=== PATIENT | male | born 1965 | race African-American/Black ===

== ENCOUNTER 2017-01-13 14:45 | Emergency (ER) | payer MEDICAID, OTHER ==
[2017-01-13 15:00] VITALS: BP 122/80
[2017-01-13] MEDS ORDERED: Ketorolac 60 MG/2 ML SDV IM ONE (15:12)
--- NOTE | 2017-01-13 23:47 | ER ---
Date of Service: 01/13/2017 SUBJECTIVE: Holden presents to the emergency room with complaints of a right great toe pain. The patient states that he has been experiencing this discomfort for several days to possibly a week. The patient has a long-standing history of problems with his right knee. He did have knee replacement last year and has had recurrent infections and dehiscence of the surgical incision. He states he is not experiencing any duskiness or calf pain. In reviewing his medical records, it looks as though he does have a history of gout in the past. He states that the discomfort is located only in his right great toe. PAST MEDICAL HISTORY: 1. Please see history of present illness. Again does have significant postsurgical complications to right knee replacement. 2. Hypertension. 3. Thrombocytopenia. MEDICATIONS: 1. Trazodone. 2. Oxycodone. ALLERGIES: NKDA. REVIEW OF SYSTEMS: General: Denies any fever or chills. Please see history of present illness. Denies any joint discomfort other than what was isolated to his right great toe. PHYSICAL EXAMINATION: General: This is a 51-year-old male patient is in no acute distress. Vital Signs: Blood pressure is 122/80, pulse rate is 92, temperature is 35.8, and O2 saturations 97%. Skin: Warm, pink, and dry. Musculoskeletal: The patient has significant discomfort in his right great toe with plantar flexion. No erythema or significant swelling noted to the joint. Neurovascular, circulation, sensation, motor function are all within normal limits in the distal portion of the extremity. RADIOGRAPHIC DATA: Right great toe series was obtained. No evidence of any acute fracture or dislocation noted. LABORATORY DATA: C-reactive protein and uric acid were obtained and were pending. The patient did not want to wait around to get the results of this. Subsequently, we will either call or write him with the results. ASSESSMENT: Right great toe pain likely secondary to gout. PLAN: The patient was started on prednisone 40 mg daily for 4 days. Also was started on a course of indomethacin 50 mg b.i.d. for discomfort. He can use oxycodone for severe pain. All questions were answered. MWK: 01/13/2017 16:09:32 MODL: 01/13/2017 23:37:37 /[id number]
--- NOTE | 2017-01-17 09:20 | LETTER ---
01/14/[address] [place] [address] [address] [place], [place] [address] RE: IDALMIS KRISTOFER CINTRON : 1965 Dear Angy Mahesh: We have received your laboratory values from your ER visit. Your uric acid measured 5.7, which is normal. Your C-reactive protein, which is a nonspecific test for inflammation is mildly elevated at 2.1. Giving a history of your multiple problems with your knee, it is not uncommon to have an elevated C- reactive protein. You do have a history of gout in the past according to your chart and I still believe that you are having a gout flare up, but your uric acid level is normal and will not require any treatment with Allopurinol. The medications that I prescribed you when you were in the emergency room are the only medications you need to take. Please contact the ER at [phone] or follow up in the clinic if you have any questions. Sincerely,
== END 2017-01-13 16:05 | disposition home or self-care (01) ==
LOC: VM.ED 14:45
DX: M79.674 Pain in right toe(s) (principal); I10 Essential (primary) hypertension
CPT/HCPCS: 36415; 73660; 84550; 86140; 96372; 99283; J1885

== ENCOUNTER 2017-03-27 10:52 | Emergency (ER) | payer MEDICAID, OTHER ==
--- NOTE | 2017-03-27 11:26 | EDM.PDOC ---
ED HPI GENERAL MEDICAL PROBLEM - General Chief Complaint: General Stated Complaint: bleeding at amp site Time Seen by Provider: 03/27/17 11:00 Source of Information: Reports: Patient, EMS Notes Reviewed, RN, RN Notes Reviewed History Limitations: Reports: No Limitations - History of Present Illness INITIAL COMMENTS - FREE TEXT/NARRATIVE: Patient is brought to the emergency room at [facility] via EMS. The patient is concerned about drainage from his recent amputation site. The patient underwent a AKA about 2 weeks ago, for an infection knee site. Patient underwent a TKA a little over a year ago. He had trouble ever since the TKA, in which he ended up having a AKA. Patient states there has been oozing from the incision site and is concerned. 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) Cardiovascular History: Reports: Hypertension Immunologic History: Reports: Other (See Below) - Infectious Disease History Infectious Disease History: Reports: Hepatitis C - Past Surgical History Musculoskeletal Surgical History: Reports: Knee Replacement Social & Family History - Family History Family Medical History: Noncontributory - Tobacco Use Smoking Status *Q: Never Smoker Years of Tobacco use: 40 Packs/Tins Daily: 0.2 Second Hand Smoke Exposure: No - Alcohol Use Days Per Week of Alcohol Use: 2 Number of Drinks Per Day: 6 Total Drinks Per Week: 12 - Recreational Drug Use Recreational Drug Use: No Drug Use in Last 12 Months: No Recreational Drug Type: Reports: Cocaine, Marijuana/Hashish ED ROS GENERAL - Review of Systems Review Of Systems: See Below Constitutional: Denies: Fever, Chills, Weakness Respiratory: Denies: Shortness of Breath, Cough Cardiovascular: Denies: Chest Pain, Palpitations Skin: Reports: Wound (draining from stump site) Neurological: Denies: Numbness, Paresthesia, Tingling ED EXAM, GENERAL - Physical Exam Exam: See Below Exam Limited By: No Limitations General Appearance: Alert Respiratory/Chest: No Respiratory Distress, Lungs Clear, Normal Breath Sounds Cardiovascular: Regular Rate, Rhythm Extremities: Other (Sutures are intact of the stump site, patient has a small grade serosanguineous ooze around the sutures, no evidence of infection, nontender) Neurological: Alert Skin Exam: Warm, Dry, Intact, Normal Color, No Rash Course - Vital Signs Last Recorded V/S: Last Vital Signs Temp 37.1 C 03/27/17 10:57 Pulse 103 H 03/27/17 10:57 Resp 20 03/27/17 10:57 BP 152/95 H 03/27/17 10:57 Pulse Ox 98 03/27/17 10:57 Departure - Departure Time of Disposition: 11:26 Disposition: Home, Self-Care 01 Condition: good Clinical Impression: Edema of amputation stump of right lower extremity, AKA stump complication - Discharge Information Instructions: Stump and Prosthesis Care, Sutured Wound Care Forms: ED Department Discharge Additional Instructions: 1. Stay well hydrated 2. Keep incision site clean and dry 3. You will need to change the bandages as needed for the drainage 4. See your Primary this week for a recheck - Problem List Review Problem List Initiated/Reviewed/Updated: Yes
[2017-03-27 12:52] VITALS: BP 149/84
== END 2017-03-27 12:44 | disposition home or self-care (01) ==
LOC: VM.ED 10:52
DX: T87.89 Other complications of amputation stump (principal); I10 Essential (primary) hypertension; Z79.899 Other long term (current) drug therapy; Z96.659 Presence of unspecified artificial knee joint
CPT/HCPCS: 99283

== ENCOUNTER 2017-05-03 09:58 | Emergency (ER) | payer MEDICAID ==
[2017-05-03 10:29] VITALS: BP 128/81
--- NOTE | 2017-05-03 10:32 | EDM.PDOC ---
ED HPI GENERAL MEDICAL PROBLEM - General Chief Complaint: Lower Extremity Injury/Pain Stated Complaint: FELL Time Seen by Provider: 05/03/17 10:15 Source of Information: Reports: Patient History Limitations: Reports: No Limitations - History of Present Illness INITIAL COMMENTS - FREE TEXT/NARRATIVE: Patient reports being outside the [employer] yesterday when he fell over some missing cement. 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 He states he has left hip pain. No LOC, did not hit his head. No other complaints today. He does have pain medications prescribed that he can take. He did not injure his amputation site. He did ambulate into the clinic with crutches and does have a prosthetic leg. Onset Date: 05/03/17 Location: Reports: Lower Extremity, Left Quality: Reports: Sharp Severity: Moderate Improves with: Reports: Cold Therapy, Rest Worsens with: Reports: Movement Associated Symptoms: Reports: No Other Symptoms Left Hip Pain Score (Numeric/FACES): 8 - Related Data Allergies Allergy/AdvReac Type Severity Reaction Status Date / Time No Known Drug Allergies Allergy Other Verified 05/03/17 10:20 Home Meds: Home Meds amLODIPine [Norvasc] 10 mg PO BEDTIME #14 tab 10/02/14 [Rx] traZODone 50 mg PO BEDTIME PRN 07/25/15 [History] Amoxicillin/Clavulanate K [Augmentin 875 MG/125 MG] 1 tab PO BID 05/08/16 [ History] oxyCODONE HCl/Acetaminophen [oxyCODONE-Acetaminophen 5-325] 10 mg Q6H 05/20/16 [ History] Ferrous Sulfate [Iron] 325 mg PO DAILY 07/17/16 [History] Past Medical History Other HEENT History: 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) Cardiovascular History: Reports: Hypertension Immunologic History: Reports: Other (See Below) - Infectious Disease History Infectious Disease History: Reports: Hepatitis C - Past Surgical History Musculoskeletal Surgical History: Reports: Knee Replacement Social & Family History - Family History Family Medical History: Noncontributory - Tobacco Use Smoking Status *Q: Never Smoker Years of Tobacco use: 40 Packs/Tins Daily: 0.2 Second Hand Smoke Exposure: No - Alcohol Use Days Per Week of Alcohol Use: 2 Number of Drinks Per Day: 6 Total Drinks Per Week: 12 - Recreational Drug Use Recreational Drug Use: No Drug Use in Last 12 Months: No Recreational Drug Type: Reports: Cocaine, Marijuana/Hashish Review of Systems - Review of Systems Review Of Systems: See Below Constitutional: Reports: No Symptoms Eyes: Reports: No Symptoms Ears: Reports: No Symptoms Nose: Reports: No Symptoms Mouth/Throat: Reports: No Symptoms Respiratory: Reports: No Symptoms Cardiovascular: Reports: No Symptoms GI/Abdominal: Reports: No Symptoms Genitourinary: Reports: No Symptoms Musculoskeletal: Reports: Leg Pain Skin: Reports: No Symptoms Neurological: Reports: No Symptoms Psychiatric: Reports: No Symptoms ED EXAM, GENERAL - Physical Exam Exam: See Below Exam Limited By: No Limitations General Appearance: Alert, WD/WN, Mild Distress Eye Exam: Bilateral Eye: EOMI, PERRL Respiratory/Chest: No Respiratory Distress, Lungs Clear, Normal Breath Sounds Cardiovascular: Normal Peripheral Pulses, Regular Rate, Rhythm, No Edema GI/Abdominal: Normal Bowel Sounds, Soft, Non-Tender Extremities: Normal Inspection, Leg Pain, Limited Range of Motion (left hip internal rotation exhibits increased pain. no leg shortening noted on exam) Neurological: Alert, Oriented, CN II-XII Intact, Normal Cognition Psychiatric: Normal Affect, Normal Mood Skin Exam: Warm Course - Vital Signs Last Recorded V/S: Last Vital Signs Temp 37.1 C 05/03/17 10:00 Pulse 81 05/03/17 10:00 Resp 16 05/03/17 10:00 BP 128/81 05/03/17 10:00 Pulse Ox - Orders/Labs/Meds Orders: Active Orders 24 hr Category Date Time Status Hip Min 2V or 3V w Pelvis Lt [CR] Stat Exams 05/03/17 10:30 Taken Meds: Medications Discontinued Medications Generic Name Dose Route Start Last Admin Trade Name Freq PRN Reason Stop Dose Admin Ketorolac Tromethamine 30 mg 05/03/17 10:48 05/03/17 10:58 Toradol IM 05/03/17 10:49 30 mg ONETIME ONE Administration - Radiology Interpretation Free Text/Narrative:: hip pelvis x-ray negative for acute fracture Departure - Departure Time of Disposition: 11:58 Disposition: Home, Self-Care 01 Condition: Good Clinical Impression: Contusion of hip, Contusion of thigh - Discharge Information Instructions: Quadriceps Contusion, [id number], Hip Pointer, [id number] Forms: ED Department Discharge Additional Instructions: Elevate your leg, use ice and you can alternate heat as well. Ice should be applied for 20-30 minutes at a time and used every 2-3 hours for swelling. Take ibuprofen and tylenol as needed for pain. Your x-ray did not show any acute fracture. You can call us with any questions or concerns. - Problem List & Annotations (1) Contusion of hip SNOMED Code(s): 07624590 Code(s): S70.00XA - CONTUSION OF UNSPECIFIED HIP, INITIAL ENCOUNTER Status : Acute Priority: Low Current Visit: Yes (2) Contusion of thigh SNOMED Code(s): 48372907 Code(s): S70.10XA - CONTUSION OF UNSPECIFIED THIGH, INITIAL ENCOUNTER Status: Acute Priority: Low Current Visit: Yes - My Orders Last 24 Hours: My Active Orders 05/03/17 10:30 Hip Min 2V or 3V w Pelvis Lt [CR] Stat - Assessment/Plan Last 24 Hours: My Active Orders 05/03/17 10:30 Hip Min 2V or 3V w Pelvis Lt [CR] Stat Assessment:: hip and thigh contusion Plan: Elevate your leg, use ice and you can alternate heat as well. Ice should be applied for 20-30 minutes at a time and used every 2-3 hours for swelling. Take ibuprofen and tylenol as needed for pain. Your x-ray did not show any acute fracture. You can call us with any questions or concerns.
[2017-05-03] MEDS ORDERED: Ketorolac 30 MG/ML SDV IM ONE (10:48)
== END 2017-05-03 12:00 | disposition home or self-care (01) ==
LOC: VM.ED 09:58
DX: S70.02XA Contusion of left hip, initial encounter (principal); S70.12XA Contusion of left thigh, initial encounter; I10 Essential (primary) hypertension; Z79.899 Other long term (current) drug therapy; Z96.651 Presence of right artificial knee joint; W19.XXXA Unspecified fall, initial encounter
CPT/HCPCS: 73502; 96372; 99283; J1885

== ENCOUNTER 2017-07-10 14:14 | Emergency (ER) | payer MEDICAID ==
[2017-07-10 14:34] VITALS: BP 151/76
[2017-07-10 16:01] LABS: CHLORIDE,CL 105 mmol/L (98-107); SODIUM,NA 140 mmol/L (136-145)
[2017-07-10] MEDS ORDERED: Ketorolac 60 MG/2 ML SDV IM ONE (16:16)
--- NOTE | 2017-07-11 08:47 | ER ---
Date of Service: 07/10/2017 SUBJECTIVE: Holden presents to the emergency room with complains of pain to his [id number] amputation stump. The patient states that he underwent amputation of his right leg above the knee in January secondary to peripheral vascular disease. He states that he has been experiencing pain in his stump for some time. He is scheduled for an ultrasound next week and apparently he has been referred to the [facility] for issues with pain in the stump as well. The patient states that he is not experiencing any fever or chills. He has not noticed any discoloration to the skin of the stump. He states that the discomfort is chronic but worse today. PAST MEDICAL HISTORY: 1. Right hzugn-env-egih amputation. 2. Hypertension. 3. Thrombocytopenia. 4. GERD. 5. Anemia. 6. Gout. MEDICATIONS: 1. Trazodone and oxycodone. 2. Multivitamin. 3. Neurontin. 4. Wellbutrin. ALLERGIES: NKDA. REVIEW OF SYSTEMS: General: No fever or chills. HEENT: No sore throat, rhinorrhea, or congestion. Cardiac: No chest pain. Respiratory: He had no shortness of breath. GI: No nausea, vomiting, or diarrhea. Musculoskeletal: Please see history of present illness. PHYSICAL EXAMINATION: General: This is a 52-year-old male patient in no acute distress. Vital Signs: Blood pressure is 151/76, heart rate is 105, temperature is 36, respiratory rate is 18, O2 saturation is 96%. Skin: Warm, pink, and dry. HEENT. Head is normocephalic, atraumatic. Mouth, oral mucosa is moist. Lungs: Clear to auscultation. Heart: Regular rate and rhythm. Abdomen: Soft, nontender. There is no hepatosplenomegaly or masses noted. Extremities: The stump is well healed. No evidence of any skin breakdown. No evidence of cellulitis or other pathology. LABORATORY DATA: WBC is 5.7, hemoglobin is 13.9, platelets are 175. Coags: PT is 11.6, INR is 1.1. D-dimer is 0.54. Chemistry: Sodium is 140, potassium is 4.4, chloride is 105, bicarb is 30, BUN is 10, creatinine is 1.1. Creatinine clearance is 86.75. GFR is greater than 60. Glucose is 111. Calcium is 9.2, corrected calcium is 9.52. Total bilirubin is 0.7, AST is 19, ALT is 24, alkaline phosphatase is 121. Total protein is 7.9, albumin is 3.6. EMERGENCY ROOM COURSE: The patient was given an injection of Toradol 60 mg IM. He remained stable in my care in the emergency room. ASSESSMENT: Acute on chronic amputation stump pain. PLAN: The patient will be discharged. He can start on naproxen 500 mg twice daily in addition to his gabapentin and oxycodone. I would like him to follow up in the clinic in the next several days to discuss possibly changing from gabapentin to Lyrica to see if this helps with his discomfort. He is to return to the emergency room if he develops any erythema or swelling or discharge from the operative site. All questions were answered. MWK: 07/10/2017 21:04:45 MODL: 07/11/2017 02:20:53 /[id number]
== END 2017-07-10 16:36 | disposition home or self-care (01) ==
LOC: VM.ED 14:14
DX: T87.89 Other complications of amputation stump (principal); D69.6 Thrombocytopenia, unspecified; I10 Essential (primary) hypertension; K21.9 Gastro-esophageal reflux disease without esophagitis; Z86.79 Personal history of other diseases of the circulatory system
CPT/HCPCS: 36415; 80053; 85025; 85379; 85610; 96372; 99283; J1885

== ENCOUNTER 2018-01-21 18:29 | Emergency (ER) | payer MEDICAID ==
[2018-01-21 18:33] VITALS: BP 151/89
[2018-01-21] MEDS ORDERED: Sodium Chloride 0.9% 1,000 ML IV ONE (18:42)
[2018-01-21] MEDS ORDERED: Sodium Chloride 0.9% 10 ML Syringe FLUSH PRN (18:42)
--- NOTE | 2018-01-21 19:03 | EDM.PDOC ---
ED HPI GENERAL MEDICAL PROBLEM - General Chief Complaint: Neurological Problem Stated Complaint: lightheadedness Time Seen by Provider: 01/21/18 18:35 Source of Information: Reports: Patient History Limitations: Reports: No Limitations - History of Present Illness INITIAL COMMENTS - FREE TEXT/NARRATIVE: Patient arrives this evening with complaints of dizziness over the last 4 days. It is made worse with position changes and moving. 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 He also had hepatitis C and did complete the treatment for that. He denies diabetes, cancer, denies high cholesterol. Mother of cancer. Father is unknown. 1 sister of stroke and he has 3 living sisters. He denies chest pain, nausea, vomiting, headache, blood in urine or stool, recent illness. He does endorse shortness of breath. He is a 1/2-3/4 PPD smoker, drinks alcohol 1-2 times weekly; reported to be 3-4 beers, denies illegal drug use. Onset Date: 01/18/18 Duration: Intermittent Worsens with: Reports: Movement Associated Symptoms: Reports: Shortness of Breath - Related Data Allergies Allergy/AdvReac Type Severity Reaction Status Date / Time No Known Drug Allergies Allergy Other Verified 01/21/18 18:33 Home Meds: Home Meds traZODone 50 mg PO BEDTIME PRN 07/25/15 [History] oxyCODONE HCl/Acetaminophen [oxyCODONE-Acetaminophen 5-325] 10 mg PO Q6H [History] Gabapentin [Neurontin] 300 mg PO TID 07/10/17 [History] Multivitamin [Multivitamins] 1 each PO DAILY 07/10/17 [History] buPROPion [Wellbutrin] 75 mg PO BID 07/10/17 [History] amLODIPine [Norvasc] 10 mg PO DAILY 01/21/18 [History] Past Medical History Other HEENT History: 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) Cardiovascular History: Reports: Hypertension Gastrointestinal History: Reports: GERD Musculoskeletal History: Reports: Gout Neurological History: Reports: Other (See Below) Other Neuro History: vasovagal syncopy Psychiatric History: Reports: Depression Hematologic History: Reports: Anemia, Idiopathic Thrombocytopenia Immunologic History: Reports: Other (See Below) - Infectious Disease History Infectious Disease History: Reports: Hepatitis C - Past Surgical History Musculoskeletal Surgical History: Reports: Amputation, Knee Replacement Social & Family History - Family History Family Medical History: Noncontributory - Tobacco Use Smoking Status *Q: Current Every Day Smoker Years of Tobacco use: 40 Packs/Tins Daily: 0.7 Second Hand Smoke Exposure: No - Alcohol Use Days Per Week of Alcohol Use: 2 Number of Drinks Per Day: 4 Total Drinks Per Week: 8 - Recreational Drug Use Recreational Drug Use: No Drug Use in Last 12 Months: No Recreational Drug Type: Reports: Cocaine, Marijuana/Hashish ED ROS GENERAL - Review of Systems Review Of Systems: See Below Constitutional: Reports: No Symptoms HEENT: Reports: No Symptoms Respiratory: Reports: Shortness of Breath Cardiovascular: Reports: No Symptoms Endocrine: Reports: No Symptoms GI/Abdominal: Reports: No Symptoms : Reports: No Symptoms Musculoskeletal: Reports: No Symptoms Skin: Reports: No Symptoms Neurological: Reports: Dizziness Psychiatric: Reports: No Symptoms Hematologic/Lymphatic: Reports: No Symptoms Immunologic: Reports: No Symptoms ED EXAM, NEURO - Physical Exam Exam: See Below Exam Limited By: No Limitations General Appearance: Alert, WD/WN, No Apparent Distress Eye Exam: Bilateral Eye: EOMI, Normal Inspection, PERRL Ears: Normal External Exam, Normal Canal, Hearing Grossly Normal, Normal TMs Nose: Normal Inspection, Normal Mucosa, No Blood Throat/Mouth: Normal Inspection, Normal Lips, Normal Teeth, Normal Gums, Normal Oropharynx, Normal Voice, No Airway Compromise Head Exam: Atraumatic, Normocephalic Neck: Normal Inspection, Supple, Non-Tender, Full Range of Motion Respiratory/Chest: No Respiratory Distress, Lungs Clear, Normal Breath Sounds, No Accessory Muscle Use, Chest Non-Tender Cardiovascular: Normal Peripheral Pulses, Regular Rate, Rhythm, No Edema, No Gallop, No JVD, No Murmur, No Rub GI/Abdominal: Normal Bowel Sounds, Soft, Non-Tender, No Organomegaly, No Distention, No Abnormal Bruit, No Mass Neurological: Alert, Normal Mood/Affect, Normal Dorsiflexion, CN II-XII Intact, Normal Plantar Flexion, Normal Gait, Normal Reflexes, No Motor/Sensory Deficits , Oriented x 3 Back Exam: Normal Inspection, Full Range of Motion, NT Extremities: Normal Inspection, Normal Range of Motion, Non-Tender, No Pedal Edema, Normal Capillary Refill, Other (right knee above the knee amputation) Psychiatric: Normal Affect, Normal Mood Skin Exam: Warm, Dry, Intact, Normal Color, No Rash EKG INTERPRETATION EKG Date: 01/21/18 Time: 18:47 Rhythm: NSR Rate (Beats/Min): 87 [place]: Normal P-Wave: Present QRS: Normal ST-T: Normal QT: Normal EKG Interpretation Comments: sinus rhythm normal ECG Course - Vital Signs Last Recorded V/S: Last Vital Signs Temp 35.9 C 01/21/18 18:30 Pulse 91 01/21/18 18:30 Resp 16 01/21/18 18:30 BP 151/89 H 01/21/18 18:30 Pulse Ox 98 01/21/18 18:30 - Orders/Labs/Meds Orders: Active Orders 24 hr Category Date Time Status EKG Documentation Completion [RC] STAT Care 01/21/18 18:42 Ordered Chest 2V [CR] Stat Exams 01/21/18 18:42 Ordered CBC WITH AUTO DIFF [HEME] Stat Lab 01/21/18 18:42 Ordered COMPREHENSIVE METABOLIC PN,CMP [CHEM] Stat Lab 01/21/18 18:42 Ordered INR,PT,PROTHROMBIN TIME [COAG] Stat Lab 01/21/18 18:42 Ordered PRO B-TYPE NATRIUR PEPT,BNPPRO [CHEM] Stat Lab 01/21/18 18:42 Ordered TROPONIN I [CHEM] Stat Lab 01/21/18 18:42 Ordered Sodium Chloride 0.9% [Normal Saline] 1,000 ml Med 01/21/18 18:42 Ordered IV ONETIME Sodium Chloride 0.9% [Saline Flush] Med 01/21/18 18:42 Ordered 10 ml FLUSH ASDIRECTED PRN Saline Lock Insert [OM.PC] Routine Oth 01/21/18 18:42 Ordered Medication Orders Sodium Chloride (Normal Saline) 1,000 mls @ 999 mls/hr IV ONETIME ONE Stop: 01/21/18 19:42 Last Admin: 01/21/18 18:52 Dose: 999 mls/hr Sodium Chloride (Saline Flush) 10 ml FLUSH ASDIRECTED PRN PRN Reason: Keep Vein Open Meds: Medications Generic Name Dose Route Start Last Admin Trade Name Freq PRN Reason Stop Dose Admin Sodium Chloride 1,000 mls @ 999 mls/hr 01/21/18 18:42 01/21/18 18:52 Normal Saline IV 01/21/18 19:42 999 mls/hr ONETIME ONE Administration Sodium Chloride 10 ml 01/21/18 18:42 Saline Flush FLUSH ASDIRECTED PRN Keep Vein Open - Re-Assessments/Exams Free Text/Narrative Re-Assessment/Exam: 01/21/18 19:41 Review of labs indicate no acute cause for his dizziness. Electrolytes within normal limits, negative troponin level, chest x-ray negative. He does not show signs of dehydration either. Recommend follow up with primary with possible MRI of brain if symptoms persist. Departure - Departure Time of Disposition: 19:59 Disposition: Home, Self-Care 01 Condition: Good Clinical Impression: Dizziness - Discharge Information Instructions: Dizziness, [id number] Forms: ED Department Discharge Additional Instructions: All of your tests this evening were negative for acute causes for your dizziness. Please make an appointment with your primary doctor to determine whether a neurology consultation would be warranted. Stay hydrated. We did give you a dose of meclizine/antivert for your dizziness to see if this helped you. I would not advise taking this on a regular basis due to your long standing hypertension. Please call with any questions or concerns in the meantime. - Problem List & Annotations (1) Dizziness SNOMED Code(s): 865627404 Code(s): R42 - DIZZINESS AND GIDDINESS Status: Acute Priority: Low Current Visit: Yes - Problem List Review Problem List Initiated/Reviewed/Updated: Yes - My Orders Last 24 Hours: My Active Orders 01/21/18 18:42 EKG Documentation Completion [RC] STAT Chest 2V [CR] Stat CBC WITH AUTO DIFF [HEME] Stat COMPREHENSIVE METABOLIC PN,CMP [CHEM] Stat INR,PT,PROTHROMBIN TIME [COAG] Stat PRO B-TYPE NATRIUR PEPT,BNPPRO [CHEM] Stat TROPONIN I [CHEM] Stat Sodium Chloride 0.9% [Normal Saline] 1,000 ml IV ONETIME Sodium Chloride 0.9% [Saline Flush] 10 ml FLUSH ASDIRECTED PRN Saline Lock Insert [OM.PC] Routine - Assessment/Plan Last 24 Hours: My Active Orders 01/21/18 18:42 EKG Documentation Completion [RC] STAT Chest 2V [CR] Stat CBC WITH AUTO DIFF [HEME] Stat COMPREHENSIVE METABOLIC PN,CMP [CHEM] Stat INR,PT,PROTHROMBIN TIME [COAG] Stat PRO B-TYPE NATRIUR PEPT,BNPPRO [CHEM] Stat TROPONIN I [CHEM] Stat Sodium Chloride 0.9% [Normal Saline] 1,000 ml IV ONETIME Sodium Chloride 0.9% [Saline Flush] 10 ml FLUSH ASDIRECTED PRN Saline Lock Insert [OM.PC] Routine Assessment:: Dizziness Plan: All of your tests this evening were negative for acute causes for your dizziness. Please make an appointment with your primary doctor to determine whether a neurology consultation would be warranted. Stay hydrated. We did give you a dose of meclizine/antivert for your dizziness to see if this helped you. I would not advise taking this on a regular basis due to your long standing hypertension. Please call with any questions or concerns in the meantime.
[2018-01-21 19:26] LABS: CHLORIDE,CL 101 mmol/L (98-107); SODIUM,NA 138 mmol/L (136-145)
[2018-01-21] MEDS ORDERED: Meclizine 25 MG Tab PO ONE (19:37)
== END 2018-01-21 19:55 | disposition home or self-care (01) ==
LOC: VM.ED 18:29
DX: R42 Dizziness and giddiness (principal); F17.210 Nicotine dependence, cigarettes, uncomplicated; I10 Essential (primary) hypertension; K21.9 Gastro-esophageal reflux disease without esophagitis; F32.9 Major depressive disorder, single episode, unspecified; Z86.19 Personal history of other infectious and parasitic diseases
CPT/HCPCS: 71046; 80053; 83880; 84484; 85025; 85610; 93005; 96360; 99284; A9270; J7030; 36415

== ENCOUNTER 2019-07-10 19:41 | Emergency (ER) | payer MEDICAID, OTHER ==
[2019-07-10] MEDS ORDERED: Lidocaine 1% 30 ML SDV INJECT ONE (19:54)
--- NOTE | 2019-07-10 20:53 | CT ---
[id number] CT/CT Head WO IV EXAM: CT Head WO IV CLINICAL DATA: FALL, STRUCK HEAD, ?LOC COMPARISON STUDY: None FINDINGS: Small scalp contusion over the high parietal region. No underlying calvarial fracture. No acute intracranial hemorrhage. No extra-axial fluid collection or hydrocephalus. IMPRESSION: No acute intracranial findings. Jovi Morillo MD 07/10/19 [id number] Thank you for allowing us to participate in the care of your patient.
[2019-07-10 21:47] VITALS: BP 148/93
--- NOTE | 2019-07-17 06:55 | EDM.PDOC ---
ED HPI GENERAL MEDICAL PROBLEM - General Chief Complaint: Head Injury Stated Complaint: Head injury, lacerations to right arm Time Seen by Provider: 07/10/19 19:50 Source of Information: Reports: Patient, RN Notes Reviewed History Limitations: Reports: No Limitations - History of Present Illness INITIAL COMMENTS - FREE TEXT/NARRATIVE: Pt. states that he fell down stairs, striking head and injuring R upper extremity. Denies any LOC. He states that he has a headache. No numbness or tingling in extremities. He has 2 lacerations to his R arm. Denies any blurred vision. No chest pain or shortness of breath. States that he did not have any lightheadedness or weakness prior to the fall. Denies any cervical spine pain. No numbness or tingling in extremities. Onset Date: 07/10/19 Location: Reports: Head, Upper Extremity, Right Back of head Pain Score (Numeric/FACES): 5 - Related Data Allergies Allergy/AdvReac Type Severity Reaction Status Date / Time No Known Drug Allergies Allergy Other Verified 07/10/19 20:10 Home Meds: Home Meds traZODone 50 mg PO BEDTIME PRN 07/25/15 [History] oxyCODONE HCl/Acetaminophen [oxyCODONE-Acetaminophen 5-325] 10 mg PO Q6H [History] Gabapentin [Neurontin] 300 mg PO TID 07/10/17 [History] Multivitamin [Multivitamins] 1 each PO DAILY 07/10/17 [History] buPROPion [Wellbutrin] 75 mg PO BID 07/10/17 [History] amLODIPine [Norvasc] 10 mg PO DAILY 01/21/18 [History] Past Medical History Other HEENT History: 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) Cardiovascular History: Reports: Hypertension Gastrointestinal History: Reports: GERD Musculoskeletal History: Reports: Gout Neurological History: Reports: Other (See Below) Other Neuro History: vasovagal syncopy Psychiatric History: Reports: Depression Hematologic History: Reports: Anemia, Idiopathic Thrombocytopenia Immunologic History: Reports: Other (See Below) - Infectious Disease History Infectious Disease History: Reports: Hepatitis C - Past Surgical History Musculoskeletal Surgical History: Reports: Amputation, Knee Replacement Social & Family History - Family History Family Medical History: Noncontributory ED ROS GENERAL - Review of Systems Review Of Systems: See Below Constitutional: Reports: No Symptoms HEENT: Reports: No Symptoms Respiratory: Reports: No Symptoms Cardiovascular: Reports: No Symptoms Endocrine: Reports: No Symptoms GI/Abdominal: Reports: No Symptoms : Reports: No Symptoms Musculoskeletal: Reports: Other (See HPI) Skin: Reports: No Symptoms Neurological: Reports: Headache Psychiatric: Reports: No Symptoms Hematologic/Lymphatic: Reports: No Symptoms Immunologic: Reports: No Symptoms ED EXAM, GENERAL - Physical Exam Exam: See Below Exam Limited By: No Limitations General Appearance: Alert, WD/WN, No Apparent Distress Eye Exam: Bilateral Eye: EOMI, Normal Fundi, Normal Inspection, PERRL Ears: Normal External Exam, Normal Canal, Hearing Grossly Normal, Normal TMs Ear Exam: Bilateral Ear: Auricle Normal, Canal Normal, TM normal Nose: Normal Inspection, Normal Mucosa, No Blood Throat/Mouth: Normal Inspection, Normal Lips, Normal Teeth, Normal Gums, Normal Oropharynx, Normal Voice, No Airway Compromise Head: Other (scalp hematoma) Neck: Normal Inspection, Supple, Non-Tender, Full Range of Motion Respiratory/Chest: No Respiratory Distress, Lungs Clear, Normal Breath Sounds, No Accessory Muscle Use, Chest Non-Tender Cardiovascular: Normal Peripheral Pulses, Regular Rate, Rhythm, No Edema, No Gallop, No JVD, No Murmur, No Rub GI/Abdominal: Normal Bowel Sounds, Soft, Non-Tender, No Organomegaly, No Distention, No Abnormal Bruit, No Mass Back Exam: Normal Inspection, Full Range of Motion Extremities: Normal Range of Motion, Non-Tender, No Pedal Edema, Normal Capillary Refill, Other (3 cm lac to R upper arm, 1 cm lac to forearm) Neurological: Alert, Oriented, CN II-XII Intact, Normal Cognition, Normal Gait Psychiatric: Normal Affect, Normal Mood Skin Exam: Warm, Dry, Intact, Normal Color, No Rash ED GENERAL MEDICAL PROCEDURES - Laceration/Wound Repair Right Arm Lac/wound length in cm: 4 Appearance: Subcutaneous Distal NVT: Neuro & Vascular Intact, No Tendon Injury Anesthetic Type: Local Local Anesthesia - Lidocaine (Xylocaine): 1% Plain Local Anesthetic Volume: 4cc Skin Prep: Chlorhexidine (Hibiciens), Saline Exploration/Debridement/Repair: Wound Explored Closed with: Sutures Suture Size: 4-0 # of Sutures: 4 (3 sutures in the upper arm, 1 suture in the lower laceration) Suture Type: Nylon Course - Vital Signs Last Recorded V/S: Last Vital Signs Temp 36.4 C 07/10/19 19:41 Pulse 68 07/10/19 20:52 Resp 16 07/10/19 20:52 BP 148/93 H 07/10/19 20:52 Pulse Ox 98 07/10/19 19:41 - Orders/Labs/Meds Meds: Medications Discontinued Medications Generic Name Dose Route Start Last Admin Trade Name Lloyd PRN Reason Stop Dose Admin Lidocaine HCl 30 ml 07/10/19 19:54 07/10/19 20:35 Xylocaine-Mpf 1% INJECT 07/10/19 19:55 4 ml ONETIME ONE Administration - Radiology Interpretation Free Text/Narrative:: CT brain negative for acute pathology Departure - Departure Time of Disposition: 21:00 Disposition: Home, Self-Care 01 Clinical Impression: Concussion injury of brain - Discharge Information Instructions: Head Injury, Adult, Laceration Care, Adult Referrals: Echo Carias MD [Primary Care Provider] - Forms: ED Department Discharge Additional Instructions: Keep dry for 24 hours. Keep area open to air as much as possible. Cover if you anticipate the area getting dirty. Return to ER if you have any redness, swelling, or discharge from the laceration areas. Also return if you have any worsening headache, confusion, difficulty speaking, or vomiting. Sutures out on or about Jul. 9 (12-14 days) - Assessment/Plan Plan: Keep dry for 24 hours. Keep area open to air as much as possible. Cover if you anticipate the area getting dirty. Return to ER if you have any redness, swelling, or discharge from the laceration areas. Also return if you have any worsening headache, confusion, difficulty speaking, or vomiting. Sutures out on or about Jul. 9 (12-14 days)
== END 2019-07-10 21:03 | disposition home or self-care (01) ==
LOC: VM.ED 19:41
DX: S06.0X0A Concussion without loss of consciousness, initial encounter (principal); S51.811A Laceration without foreign body of right forearm, initial encounter; S41.111A Laceration without foreign body of right upper arm, initial encounter; I10 Essential (primary) hypertension; F32.9 Major depressive disorder, single episode, unspecified; Z79.899 Other long term (current) drug therapy; W10.9XXA Fall (on) (from) unspecified stairs and steps, initial encounter
CPT/HCPCS: 12002; 70450; 99284-25; 99284-GF; J2001

== ENCOUNTER 2020-10-18 13:28 | Emergency (ER) | payer BC ==
--- NOTE | 2020-10-18 13:56 | EDM.PDOC ---
ED HPI GENERAL MEDICAL PROBLEM - General Stated Complaint: right stump pain Time Seen by Provider: 10/18/20 13:50 Source of Information: Reports: Patient History Limitations: Reports: No Limitations - History of Present Illness INITIAL COMMENTS - FREE TEXT/NARRATIVE: This patient comes emergency department today with complaints of cramping sensation to his right thigh where he has a right AKA. This patient a couple of days ago was walking with his right lower extremity prosthetic when he stepped into a hole and really jammed his leg down into the hole. He had quite a bit of pain in his right femur region. He had x-rays completed in the clinic that were reported as negative. He was given a dose of Toradol IM and told if his pain was not better in 6 hours to go to the emergency department. The patient has been taking his oxycodone that he takes chronically but it is not doing much for his pain. He really cannot sleep. He has this constant squeezing pressure tightness to his right thigh in the area of his AKA. No recent falls or trauma. He has been putting ice on it at home but it is not improving. No Covid exposure. No Covid symptoms. He has not been using his lower extremity prosthetic. Right Hip Pain Score (Numeric/FACES): 10 - Related Data Allergies Allergy/AdvReac Type Severity Reaction Status Date / Time No Known Drug Allergies Allergy Other Verified 10/18/20 19:47 Home Meds: Home Meds traZODone 50 mg PO BEDTIME PRN 07/25/15 [History] oxyCODONE HCl/Acetaminophen [oxyCODONE-Acetaminophen 5-325] 10 mg PO Q6H 05/20/16 [History] Gabapentin [Neurontin] 300 mg PO TID 07/10/17 [History] Multivitamin [Multivitamins] 1 each PO DAILY 07/10/17 [History] buPROPion [Wellbutrin] 75 mg PO BID 07/10/17 [History] amLODIPine [Norvasc] 10 mg PO DAILY 01/21/18 [History] Past Medical History Other HEENT History: 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) Cardiovascular History: Reports: Hypertension Gastrointestinal History: Reports: GERD Musculoskeletal History: Reports: Gout Neurological History: Reports: Other (See Below) Other Neuro History: vasovagal syncopy Psychiatric History: Reports: Depression Hematologic History: Reports: Anemia, Idiopathic Thrombocytopenia Immunologic History: Reports: Other (See Below) - Infectious Disease History Infectious Disease History: Reports: Hepatitis C - Past Surgical History Musculoskeletal Surgical History: Reports: Amputation, Knee Replacement Social & Family History - Family History Family Medical History: No Pertinent Family History Review of Systems - Review of Systems Review Of Systems: Comprehensive ROS is negative, except as noted in HPI. ED EXAM, GENERAL - Physical Exam Exam: See Below Free Text/Narrative:: This is a very pleasant happy interactive patient. Who is ambulatory on his crutches. Exam Limited By: No Limitations General Appearance: Alert, WD/WN Respiratory/Chest: No Respiratory Distress Cardiovascular: Normal Peripheral Pulses Extremities: No: Normal Inspection (Examination of the right lower extremity. The patient has a well-healed unremarkable right AKA. He clearly has some muscle spasms on the very anterior distal aspect of the stump as well as on the lateral aspect over the area of the greater trochanter. He is tender in both of these area. There is no crepitus bruising swelling or ecchymosis. He has normal range of motion at the hip.) Neurological: Alert, Oriented, No Motor/Sensory Deficits Course - Vital Signs Last Recorded V/S: Last Vital Signs Temp 98.6 F 10/18/20 13:30 Pulse 100 10/18/20 13:30 Resp 16 10/18/20 13:30 BP 132/68 10/18/20 13:30 Pulse Ox 99 10/18/20 13:30 - Orders/Labs/Meds Meds: Medications Discontinued Medications Generic Name Dose Route Start Last Admin Trade Name Lloyd PRN Reason Stop Dose Admin Diazepam 45 mg 10/18/20 14:29 10/18/20 19:56 Valium. PO 10/18/20 14:30 Not Given ONETIME ONE Diazepam Confirm 10/18/20 14:52 10/18/20 19:57 Valium. Administered 10/18/20 14:53 Not Given Dose 25 mg .ROUTE .STK-MED ONE Ketorolac Tromethamine 30 mg 10/18/20 14:06 10/18/20 14:17 Toradol IM 10/18/20 14:07 30 mg ONETIME ONE Administration Orphenadrine Citrate 60 mg 10/18/20 14:06 10/18/20 14:17 Norflex IM 10/18/20 14:07 60 mg NOW STA Administration - Re-Assessments/Exams Free Text/Narrative Re-Assessment/Exam: Patient was given ketorolac 30 mg IM. Norflex 60 mg IM. The patient does not want to wait around for them to show improvement of his pain. Which I think is appropriate because this is clearly a muscle spasm most likely caused from the trauma or of a couple of days ago and his muscles are just not releasing. I did review his [place] PDMP which is very appropriate. I will send him home with some Valium as well to use at home for his muscle spasms. I think he should be using heat instead of ice. Also consideration of physical therapy or stretches at home to help release the muscle spasms that he is having in his right AKA. He is comfortable with this plan and his questions are answered. He was cautioned on sedation with the Valium no driving or drinking alcohol. Departure - Departure Time of Disposition: 14:33 Disposition: Home, Self-Care 01 Clinical Impression: Muscle spasm - Discharge Information *PRESCRIPTION DRUG MONITORING PROGRAM REVIEWED*: Yes *COPY OF PRESCRIPTION DRUG MONITORING REPORT IN PATIENT MICHAEL: Yes Instructions: Muscle Cramps and Spasms, [id number] Referrals: Echo Carias MD [Primary Care Provider] - Forms: ED Department Discharge Additional Instructions: Continue with your home medications as previous. Try heat at home. Also try to stretch out the leg to help with the muscle spasms. Increase fluid intake. Add Diazepam, 1 tablet three times a day as needed for muscle spasm. #9 dispensed from the ED. Caution sedation. Do not drink alcohol or drive after taking this medication. Return to the ED if new or worsening symptoms. Follow up with PCP in the next week if any concerns. Could also consider physical therapy if continued spasms and pain.
[2020-10-18] MEDS ORDERED: Orphenadrine 60 MG/2 ML Inj IM STA (14:06)
[2020-10-18] MEDS ORDERED: Ketorolac 30 MG/ML SDV IM ONE (14:06)
[2020-10-18] MEDS ORDERED: Diazepam 5 MG Tab PO ONE (14:29)
[2020-10-18] MEDS ORDERED: Diazepam 5 MG Tab ONE (14:52)
[2020-10-18 19:52] VITALS: BP 132/68; PULSE 100
== END 2020-10-18 14:45 | disposition home or self-care (01) ==
LOC: VM.ED 13:28
DX: M62.838 Other muscle spasm (principal); I10 Essential (primary) hypertension; F32.9 Major depressive disorder, single episode, unspecified; Z89.612 Acquired absence of left leg above knee; Z79.899 Other long term (current) drug therapy
CPT/HCPCS: 96372; 99283; J1885; J2360

== ENCOUNTER 2021-10-21 09:13 | Emergency (ER) | payer BC ==
[2021-10-21] MEDS ORDERED: Bupivacaine 0.5% 30 ML SDV INJECT PRN (10:17)
[2021-10-21 10:20] VITALS: BP 133/89; PULSE 64
--- NOTE | 2021-10-21 16:09 | EDM.PDOC ---
ED HPI GENERAL MEDICAL PROBLEM - General Chief Complaint: ENT Problem Stated Complaint: TOOTHACHE Time Seen by Provider: 10/21/21 10:00 Source of Information: Reports: Patient History Limitations: Reports: No Limitations - History of Present Illness INITIAL COMMENTS - FREE TEXT/NARRATIVE: Pt. presents to ER with complaints of dental pain. Was seen at [facility] yesterday, started on oral clindamycin for dental infection. He has poor dentition and has an infected R molar. He was scheduled to see oral surgery but no showed numerous times and subsequently they won't see him. He is scheduled to see another surgeon in November. Denies any fever or chills. No swelling to head or neck. Onset: Today Onset Date: 10/21/21 Upper Tooth/Teeth Pain Score (Numeric/FACES): 10 - Related Data Allergies Allergy/AdvReac Type Severity Reaction Status Date / Time No Known Drug Allergies Allergy Other Verified 10/21/21 10:23 Home Meds: Home Meds traZODone 50 mg PO BEDTIME PRN 07/25/15 [History] oxyCODONE HCl/Acetaminophen [oxyCODONE-Acetaminophen 5-325] 10 mg PO Q8H 05/20/16 [History] Gabapentin [Neurontin] 300 mg PO TID 07/10/17 [History] Multivitamin [Multivitamins] 1 each PO DAILY 07/10/17 [History] buPROPion [Wellbutrin] 75 mg PO BID 07/10/17 [History] amLODIPine [Norvasc] 10 mg PO DAILY 01/21/18 [History] Past Medical History Other HEENT History: 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) Cardiovascular History: Reports: Hypertension Gastrointestinal History: Reports: GERD Musculoskeletal History: Reports: Gout Neurological History: Reports: Other (See Below) Other Neuro History: vasovagal syncopy Psychiatric History: Reports: Depression Hematologic History: Reports: Anemia, Idiopathic Thrombocytopenia Immunologic History: Reports: Other (See Below) - Infectious Disease History Infectious Disease History: Reports: Hepatitis C - Past Surgical History Musculoskeletal Surgical History: Reports: Amputation, Knee Replacement Other Musculoskeletal Surgeries/Procedures:: amputation above R knee Social & Family History - Family History Family Medical History: No Pertinent Family History - Tobacco Use Tobacco Use Status *Q: Current Every Day Tobacco User Years of Tobacco use: 4 Packs/Tins Daily: 0.5 - Recreational Drug Use Recreational Drug Use: No ED ROS GENERAL - Review of Systems Review Of Systems: Comprehensive ROS is negative, except as noted in HPI. ED EXAM, GENERAL - Physical Exam Exam: See Below Exam Limited By: No Limitations General Appearance: Alert, WD/WN, No Apparent Distress Throat/Mouth: Other (Numerous missing teeth. Severe tooth decay/caries to numerous teeth. Tooth in question R lower rear molar, containing large central cathy. No obvious cellulitis/abscess. No swelling to lateral face/neck/hypopharynx.) ED GENERAL MEDICAL PROCEDURES - Additional/Other Procedure(s) Other (Free Text) Procedure(s): R mental nerve block placed. No cellulitis or active soft tissue infection was noted in the area of injection. Pt. reported significant improvement in discomfort following injection. Course - Vital Signs Last Recorded V/S: Last Vital Signs Temp 37.0 C 10/21/21 10:00 Pulse 64 10/21/21 10:00 Resp 18 10/21/21 10:00 BP 133/89 10/21/21 10:00 Pulse Ox 99 10/21/21 10:00 - Orders/Labs/Meds Meds: Medications Discontinued Medications Generic Name Dose Route Start Last Admin Trade Name Freq PRN Reason Stop Dose Admin Bupivacaine HCl 30 ml 10/21/21 10:17 10/21/21 10:31 Bupivacaine 0.5% 30 Ml Sdv INJECT 30 ml ASDIRECTED PRN Administration Other Departure - Departure Time of Disposition: 16:13 Disposition: Home, Self-Care 01 Clinical Impression: Dental caries - Discharge Information Instructions: Dental Pain, [id number] Referrals: Echo Carias MD [Primary Care Provider] - Forms: ED Department Discharge Additional Instructions: Home to rest. Please excuse from work today due to illness. Return to ER if you notice increased facial/neck swelling, problems swallowing or breathing. This block will only last a few hours. I advise you to use your oxycodone as well to keep on top of the pain. Sepsis Event Note (ED) - Focused Exam Vital Signs: Vital Signs Temp Pulse Resp BP Pulse Ox 10/21/21 10:00 37.0 C 64 18 133/89 99 - Problem List Review Problem List Initiated/Reviewed/Updated: Yes - Assessment/Plan Plan: Home to rest. Please excuse from work today due to illness. Return to ER if you notice increased facial/neck swelling, problems swallowing or breathing. This block will only last a few hours. I advise you to use your oxycodone as well to keep on top of the pain.
== END 2021-10-21 10:39 | disposition home or self-care (01) ==
LOC: VM.ED 09:13
DX: K02.9 Dental caries, unspecified (principal); I10 Essential (primary) hypertension; D69.6 Thrombocytopenia, unspecified; Z72.0 Tobacco use; Z79.899 Other long term (current) drug therapy
CPT/HCPCS: 64400; 99282-25; J3490

== ENCOUNTER 2021-10-23 03:45 | Emergency (ER) | payer BC ==
[2021-10-23 04:06] VITALS: BP 139/96; PULSE 98
[2021-10-23] MEDS ORDERED: Ondansetron 4 MG Tab.DIS PO ONE (04:23)
[2021-10-23] MEDS ORDERED: Amoxicillin 500 MG Cap PO ONE (04:37)
[2021-10-23] MEDS ORDERED: Take Home: Ondansetron 4 MG Tab.DIS, 2 Tab Pack PO ONE (04:39)
--- NOTE | 2021-10-23 04:39 | EDM.PDOC ---
ED HPI GENERAL MEDICAL PROBLEM - General Chief Complaint: Gastrointestinal Problem Stated Complaint: Nausea/Vomiting, dental pain, abscess Time Seen by Provider: 10/23/21 04:15 Source of Information: Reports: Patient History Limitations: Reports: No Limitations - History of Present Illness INITIAL COMMENTS - FREE TEXT/NARRATIVE: Patient comes emergency department today from home with complaints of nausea vomiting as well as a dental infection. He was seen in the dentist office he reports a couple of days ago and concern for an infected wisdom tooth on the right lower aspect. He was started on clindamycin 300 mg 3 times daily. He is scheduled to have surgery to remove this early next week. He started to have diarrhea. No fever no chills. No difficulty breathing or swallowing. No shortness of breath. No cough or congestion. He has no trismus. The nausea vomiting diarrhea started after the clindamycin. He relates that he has not been on antibiotics recently. He has only had a couple of loose stools. They are not fulminant. They are not overtly foul-smelling. - Related Data Allergies Allergy/AdvReac Type Severity Reaction Status Date / Time No Known Drug Allergies Allergy Other Verified 10/21/21 10:23 Home Meds: Home Meds traZODone 50 mg PO BEDTIME PRN 07/25/15 [History] oxyCODONE HCl/Acetaminophen [oxyCODONE-Acetaminophen 5-325] 10 mg PO Q8H 05/20/16 [History] Gabapentin [Neurontin] 300 mg PO TID 07/10/17 [History] Multivitamin [Multivitamins] 1 each PO DAILY 07/10/17 [History] buPROPion [Wellbutrin] 75 mg PO BID 07/10/17 [History] amLODIPine [Norvasc] 10 mg PO DAILY 01/21/18 [History] Amoxicillin 500 mg PO TID #15 capsule 10/23/21 [Rx] Clindamycin HCl 300 mg PO TID 10/23/21 [History] Ondansetron [Ondansetron ODT] 4 mg PO Q6H PRN #9 tab.rapdis 10/23/21 [Rx] Past Medical History Other HEENT History: 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) Cardiovascular History: Reports: Hypertension Gastrointestinal History: Reports: GERD Musculoskeletal History: Reports: Gout Neurological History: Reports: Other (See Below) Other Neuro History: vasovagal syncopy Psychiatric History: Reports: Depression Hematologic History: Reports: Anemia, Idiopathic Thrombocytopenia Immunologic History: Reports: Other (See Below) - Infectious Disease History Infectious Disease History: Reports: Hepatitis C - Past Surgical History Musculoskeletal Surgical History: Reports: Amputation, Knee Replacement Other Musculoskeletal Surgeries/Procedures:: amputation above R knee Social & Family History - Family History Family Medical History: No Pertinent Family History - Tobacco Use Tobacco Use Status *Q: Unknown Ever Used Tobacco ED ROS ENT - Review of Systems Review Of Systems: Comprehensive ROS is negative, except as noted in HPI. ED EXAM, ENT - Physical Exam Exam: See Below Exam Limited By: No Limitations General Appearance: Alert, WD/WN, No Apparent Distress Eye Exam: Bilateral Eye: EOMI, PERRL Ears: Normal External Exam, Normal Canal Nose: Normal Inspection Mouth/Throat: No: Normal Teeth (This patient has quite a bit of dental decay throughout the entire oral cavity. Some down to the pulp and some the aspect of the right lower jaw. The right lower wisdom tooth appears to be impacted. There is no sign of abscess or drainage.), Dental Abcess, Drooling, Dry Mucous Membrane, Gum Swelling, Lip Ulcers, Muffled Voice, Oral Ulcers, Pharyngeal Erythema, Throat Pain, Throat Swelling, Tongue Swelling, Tonsillar Erythema, Tonsillar Exudates, Tonsillar Swelling, Trismus, Uvular Deviation, Uvular Edema Head: Atraumatic, Normocephalic Neck: Normal Inspection, Supple, Non-Tender, Full Range of Motion Respiratory/Chest: No Respiratory Distress, Lungs Clear, Normal Breath Sounds Cardiovascular: Normal Peripheral Pulses, Regular Rate, Rhythm GI/Abdominal: Normal Bowel Sounds, Soft, Non-Tender (Male) Exam: Deferred Rectal (Males) Exam: Deferred Back: Normal Inspection, Full Range of Motion Extremities: Normal Inspection, Normal Range of Motion Neurological: Alert, Oriented, CN II-XII Intact, Normal Cognition, Normal Gait Psychiatric: Normal Affect Skin: Warm, Dry, Intact, Normal Color Course - Vital Signs Last Recorded V/S: Last Vital Signs Temp 97.8 F 10/23/21 03:45 Pulse 98 10/23/21 03:45 Resp 16 10/23/21 03:45 BP 139/96 H 10/23/21 03:45 Pulse Ox 99 10/23/21 03:45 - Orders/Labs/Meds Meds: Medications Discontinued Medications Generic Name Dose Route Start Last Admin Trade Name Lloyd PRN Reason Stop Dose Admin Amoxicillin 500 mg 10/23/21 04:37 10/23/21 04:56 Amoxicillin 500 Mg Cap PO 10/23/21 04:38 500 mg ONETIME ONE Administration Ondansetron HCl 4 mg 10/23/21 04:23 10/23/21 04:27 Ondansetron 4 Mg Tab.Dis PO 10/23/21 04:24 4 mg ONETIME ONE Administration Ondansetron HCl 1 packet 10/23/21 04:39 10/23/21 04:56 Take Home: Ondansetron 4 Mg Tab.Dis, 2 Tab Pack PO 10/23/21 04:40 1 packet ONETIME ONE Administration - Re-Assessments/Exams Free Text/Narrative Re-Assessment/Exam: The patient was given Zofran ODT. Which resolved his nausea. He was able to tolerate oral fluids. He was given amoxicillin orally for his presumed dental infection of the right lower wisdom tooth. Stool culture pending for C. difficile. He has only been on clindamycin for a short period of time although he has had nausea vomiting quite a bit of diarrhea. We will discontinue his clindamycin this is most likely cause of his gastroenteritis at this time we will switch him to amoxicillin. Pending his stool culture results for the possibility of C. difficile. He needs to follow- up with his dentist as soon as possible is comfortable with this plan his questions are answered. Departure - Departure Time of Disposition: 04:45 Disposition: Home, Self-Care 01 Clinical Impression: Gastroenteritis, Pain, dental - Discharge Information Prescriptions: Amoxicillin 500 mg PO TID #15 capsule Ondansetron [Ondansetron ODT] 4 mg PO Q6H PRN #9 tab.rapdis PRN Reason: Nausea/Vomiting Instructions: Antibiotic Medicine, Adult, [id number], Viral Gastroenteritis, Adult, [id number] Referrals: PCP,None [Primary Care Provider] - Forms: ED Department Discharge Additional Instructions: Discontinue the Clindamycin, this may be the cause of your symptoms. Start amoxicillin 500mg by mouth three times a day for the next 5 days. Rx sent to the pharmacy. Zofran 1 tablet every 6 hrs as needed for nausea. Starter pack given to you in the ED. RX sent to the pharmacy. See your dentist on tuesday as planned. If the diarrhea continue see your PCP and consider a stool culture as the anti- biotic you were on can cause an infectious diarrhea. Not usually at 24 hours. Tylenol and or Ibuprofen as needed for pain. Return to the ED if new or worsening symptoms. Start taking an over the counter probiotic to help with the nausea vomiting diarrhea. Sepsis Event Note (ED) - Evaluation Sepsis Screening Result: No Definite Risk
== END 2021-10-23 05:10 | disposition home or self-care (01) ==
LOC: VM.ED 03:45
DX: K52.9 Noninfective gastroenteritis and colitis, unspecified (principal); K08.89 Other specified disorders of teeth and supporting structures; I10 Essential (primary) hypertension; M10.9 Gout, unspecified
CPT/HCPCS: 99283; A9270-GY

== ENCOUNTER 2022-06-06 22:59 | Emergency (ER) | payer BC, MEDICAID, OTHER, SELFPAY ==
[2022-06-07] MEDS ORDERED: fentaNYL 50 MCG/HR Transdermal Patch TRDERM SCH ×2 (00:09→08:00)
[2022-06-07 00:14] VITALS: BP 171/95; PULSE 92
== END 2022-06-07 01:13 | disposition home or self-care (01) ==
LOC: VM.ED 22:59
DX: M23.92 Unspecified internal derangement of left knee (principal); I10 Essential (primary) hypertension
CPT/HCPCS: 73700-LT; 99283; 99284

== ENCOUNTER 2022-10-24 06:58 | Emergency (ER) | payer MEDICAID ==
[2022-10-24 07:13] VITALS: BP 138/81; PULSE 85
== END 2022-10-24 08:06 | disposition home or self-care (01) ==
LOC: VM.ED 06:58
DX: M79.672 Pain in left foot (principal); L84 Corns and callosities; B35.1 Tinea unguium; I10 Essential (primary) hypertension; D64.9 Anemia, unspecified; F32.A Depression, unspecified; Z79.899 Other long term (current) drug therapy
CPT/HCPCS: 73620-LT; 99283